=== PATIENT | female | born 1940 | race Caucasian/White ===

== ENCOUNTER 2016-06-01 10:24 | Day surgery (SDC) | payer MEDICARE, OTHER ==
[~2016-06-01] VITALS: Ht 170.2 cm; Wt 71.0 kg
[~2016-06-01 10:24] MED LIST: HYDR1TAB12 PO; PROP80CA12 PO
[2016-06-01] MEDS ORDERED: MULT-6 PO (11:56)
[2016-06-01] MEDS ORDERED: PREVEGEN PO (11:56)
[2016-06-01] MEDS ORDERED: KAOPECTATE PO (11:56)
[2016-06-01] MEDS ORDERED: PROP80TA PO (11:56)
[2016-06-01] MEDS ORDERED: HYDR-3240 PO (11:56)
[2016-06-01] MEDS ORDERED: ASPI-621 PO (11:56)
[2016-06-01] MEDS ORDERED: FOCUS FACTOR PO (11:56)
[2016-06-01] MEDS ORDERED: DEXA4TAB PO (11:56)
[2016-06-01] MEDS ORDERED: ATORVASTATIN PO (11:56)
[2016-06-01] MEDS ORDERED: CALCIUM PO (11:56)
[2016-06-01] MEDS ORDERED: MORP30TA PO (11:56)
[2016-06-01] MEDS ORDERED: VITAMIN C PO (11:56)
[2016-06-01] MEDS ORDERED: NIACIN PO (11:56)
[2016-06-01] MEDS ORDERED: MORP15TA PO (11:56)
[2016-06-01 11:57] VITALS: BP 156/87
[2016-06-01] MEDS ORDERED: SODIUM CHLORIDE 0.9% 1,000 ML IV SCH (11:59)
[2016-06-01 12:22] LABS: HEMOGLOBIN 12.3 g/dL (11.7-16.4)
[2016-06-01] MEDS ORDERED: LIDOCAINE 1%, 20ML ONE (12:24)
[2016-06-01] MEDS ORDERED: MIDAZOLAM 1 MG/ML, 5ML ONE (12:46)
[2016-06-01] MEDS ORDERED: FENTANYL PF 100 MCG/2ML ONE (12:46)
== END 2016-06-01 14:55 | disposition home or self-care (01) ==
LOC: OUT 10:24
PROVIDERS: ATTEND Specialist
DX: C90.00 Multiple myeloma not having achieved remission (principal); I34.1 Nonrheumatic mitral (valve) prolapse
CPT/HCPCS: 36415; 38221; 77012; 85025; 85097; 88237; 88264; 88280; 88305; 88311; 88313; G0364; J2250; J3010; J3490; J7030; 88341; 88342; 99156; 99157; G0461

== ENCOUNTER → 2017-05-05 | Outpatient (CLI) | payer MEDICARE, OTHER ==
[~2017-05-05] MED LIST changes: +ASPI-621 PO; +ATORVASTATIN PO; +CALCIUM PO; +DEXA4TAB PO; +FOCUS FACTOR PO; +HYDR-3240 PO; +KAOPECTATE PO; +MORP15TA PO; +MORP30TA PO; +MULT-6 PO; +NIACIN PO; +PREVEGEN PO; +PROP80TA PO; +VITAMIN C PO
[2017-05-05 11:17] LABS: ALANINE AMINOTRANSFERASE 46 U/L (12-78); ALBUMIN 4.1 g/dL (3.4-5.0); ANION GAP 7 mmol/L (5-15); CALCIUM 8.5 mg/dL (8.5-10.1); CHLORIDE 105 mmol/L (98-107); CREATININE 1.11 mg/dL (0.55-1.02)
[2017-05-05 11:19] LABS: ALKALINE PHOSPHATASE 78 U/L (45-117); BILIRUBIN,TOTAL 0.8 mg/dL (0.2-1.0); TOTAL PROTEIN 7.5 g/dL (6.4-8.2)
== END | disposition home or self-care (01) ==
LOC: RAD 10:34
PROVIDERS: ATTEND Specialist
DX: I82.409 Acute embolism and thrombosis of unspecified deep veins of unspecified lower extremity (principal); M79.89 Other specified soft tissue disorders; C90.00 Multiple myeloma not having achieved remission
CPT/HCPCS: 36415; 80053; 82232; 82784; 83883; 84155; 84156; 84165; 86334; 93970

== ENCOUNTER 2017-07-07 06:56 | Day surgery (SDC) | payer MEDICARE, OTHER ==
[2017-07-01 12:46] VITALS: BP 118/73
[~2017-07-07] VITALS: Ht 167.6 cm; Wt 72.5 kg
[~2017-07-07 06:56] MED LIST changes: +AMLO10TA2 PO; +LEVE500T8 PO
[2017-07-07] MEDS ORDERED: LACTATED RINGERS 1,000 ML IV SCH (07:46)
[2017-07-07 07:57] VITALS: BP 118/73
[2017-07-07] MEDS ORDERED: LIDOCAINE-MPF 1%, 2ML INFIL ONE (08:00)
[2017-07-07] MEDS ORDERED: PROPOFOL 10 MG/ML, 20ML ONE (08:55)
== END 2017-07-07 11:10 ==
LOC: OUT 06:56
PROVIDERS: ATTEND Internal Medicine Gastroenterology
DX: K63.5 Polyp of colon (principal); K57.30 Diverticulosis of large intestine without perforation or abscess without bleeding; E78.5 Hyperlipidemia, unspecified; I10 Essential (primary) hypertension; Z90.710 Acquired absence of both cervix and uterus; Z88.1 Allergy status to other antibiotic agents; Z88.8 Allergy status to other drugs, medicaments and biological substances
CPT/HCPCS: 45380; 88305; J2704; J3490; J7120

== ENCOUNTER → 2017-09-13 | Outpatient (CLI) | payer MEDICARE, OTHER | END | disposition home or self-care (01) | LOC: CFH 14:14 | PROVIDERS: ATTEND Specialist | DX: I10 Essential (primary) hypertension (principal); E78.5 Hyperlipidemia, unspecified; R60.0 Localized edema; C90.00 Multiple myeloma not having achieved remission | CPT/HCPCS: 93306 ==

== ENCOUNTER → 2019-05-10 | Outpatient (CLI) | payer MEDICARE, OTHER ==
[~2019-05-10] MED LIST changes: -AMLO10TA2 PO; +AMLO10TA8 PO; -ASPI-621 PO; +ASPI81TA45 PO; -HYDR1TAB12 PO; +HYDR1TAB13 PO; -PROP80CA12 PO; +PROP80CA47 PO
== END | disposition home or self-care (01) ==
LOC: PETCFH 09:18
PROVIDERS: ATTEND Internal Medicine Hematology & Oncology
DX: C90.00 Multiple myeloma not having achieved remission (principal)
CPT/HCPCS: 78815; A9552